=== PATIENT | female | born 1965 | race Caucasian/White ===

== ENCOUNTER → 2020-10-06 | Day surgery (SDC) | payer OTHER ==
[~2020-10-06] MED LIST: ATENOLOL25 MG PO; BASAGLAR K100 UNIT/1 SQ; BENTYL 20MG TAB20 MG PO; BUSPIRONE HCL5 MG PO; CYCLOBENZAPRINE10 MG PO; CYMBALTA 20 MG20 MG PO; CYMBALTA60 MG PO; ELMIRON 100 MG100 MG PO; ELMIRON100 MG PO; ESTRADIOL1 EAC3 TD; HYDROXYZINE PAM25 MG PO; HYDROXYZINE PAM50 MG PO; NABUMETONE500 MG PO; NORCO 5-325 TA1 EACH PO; PRAVACHOL40 MG PO; PREMARIN VAG CR30 GM PV; PYRIDIUM200 MG PO; RESTASIS 0.05%1 EACH OU; ROPINIROLE HC0.25 MG PO; VISTARIL 25 MG25 MG PO; VISTARIL 50 MG50 MG PO; WELLBUTRIN SR100 MG PO; ZANTAC150 MG PO; ZOCOR10 MG PO; ZOFRAN ODT 4 MG4 MG PO
[2020-10-06 08:04] LABS: HEMOGLOBIN 12.7 gm/dl (12.3-15.3); RED BLOOD COUNT 4.35 M/UL (4.00-5.10); WHITE BLOOD COUNT 6.1 K/UL (4.5-11.0)
[2020-10-06 08:20] LABS: BUN/CREATININE RATIO 19 (0-10)
== END | disposition home or self-care (01) ==
LOC: OR 06:57
PROVIDERS: Orthopaedic Surgery
DX: M80.88XA Other osteoporosis with current pathological fracture, vertebra(e), initial encounter for fracture (principal); K21.9 Gastro-esophageal reflux disease without esophagitis; E11.9 Type 2 diabetes mellitus without complications; E78.5 Hyperlipidemia, unspecified; I10 Essential (primary) hypertension; F41.8 Other specified anxiety disorders; Z88.2 Allergy status to sulfonamides; Z90.49 Acquired absence of other specified parts of digestive tract; Z90.710 Acquired absence of both cervix and uterus; Z80.1 Family history of malignant neoplasm of trachea, bronchus and lung; Z79.899 Other long term (current) drug therapy; X58.XXXA Exposure to other specified factors, initial encounter
CPT/HCPCS: 36415; 71045; 80048; 81001; 85027; 86850; 86900; 86901; 93005; C1713; J0690; J2250; J3010; J7030; J7040; J7120; Q9962

== ENCOUNTER → 2020-12-21 | Outpatient (CLI) | payer OTHER | LOC: MAMO 12-17 08:00 | DX: Z12.31 Encounter for screening mammogram for malignant neoplasm of breast (principal) | CPT/HCPCS: 77063; 77067 ==

== ENCOUNTER → 2021-02-16 | Outpatient (CLI) | payer OTHER | LOC: KOH-I 15:49 | DX: M54.6 Pain in thoracic spine (principal); M54.5 Low back pain | CPT/HCPCS: 72070; 72100 ==

== ENCOUNTER 2021-10-18 15:28 | Emergency (ER) | payer BC, OTHER ==
[2021-10-18 16:01] LABS: HEMOGLOBIN 13.4 gm/dl (12.3-15.3); RED BLOOD COUNT 4.35 M/UL (4.00-5.10); WHITE BLOOD COUNT 8.2 K/UL (4.5-11.0)
[2021-10-18 17:39] LABS: BUN/CREATININE RATIO 21 (0-10)
== END 2021-10-18 19:36 | disposition home or self-care (01) ==
LOC: ER1 15:28
PROVIDERS: Emergency Medicine
DX: U07.1 COVID-19 (principal); E11.649 Type 2 diabetes mellitus with hypoglycemia without coma
CPT/HCPCS: 0240U; 70450; 71045; 80048; 80307; 81001; 82550; 82553; 82962; 83735; 83874; 84484; 85025; 93005; 99285; J2405

== ENCOUNTER → 2022-03-15 | Outpatient (CLI) | payer BC, OTHER | LOC: KOH-I 03-10 11:15 | DX: M79.604 Pain in right leg (principal) | CPT/HCPCS: 93971 ==